=== PATIENT | male | born 1990 | race Two or more races ===

== ENCOUNTER 2017-12-19 19:04 | Emergency (ER) | payer MEDICAID ==
[2017-12-19] VITALS (10 sets, daily range): BP systolic 94–143; BP diastolic 46–93
[~2017-12-19] VITALS: Ht 172.7 cm; Wt 69.9 kg
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
[2017-12-19] MEDS ORDERED: Propofol 200mg/20ml IV ONE ×2 (19:13→21:45)
[2017-12-19] MEDS ORDERED: Norco 5mg/325mg tab ORAL ONE (20:45)
[2017-12-19] MEDS ORDERED: IBUPROFEN600 MG ORAL (21:06)
[2017-12-19] MEDS ORDERED: ACETAMINOPHEN-1 EAC1 ORAL (21:06)
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
== END 2017-12-19 22:42 | disposition home or self-care (01) ==
LOC: EDBD 19:04 → EMR 19:20
DX: S52.522A Torus fracture of lower end of left radius, initial encounter for closed fracture (principal); S52.612A Displaced fracture of left ulna styloid process, initial encounter for closed fracture; V18.0XXA Pedal cycle driver injured in noncollision transport accident in nontraffic accident, initial encounter; Y92.89 Other specified places as the place of occurrence of the external cause
CPT/HCPCS: 25605; 29105; 73090; 73100; 96372; 96374; 96375; 96376; 99285; J2405; J2704; Z7502